=== PATIENT | male | born 2000 | race Two or more races ===

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

== ENCOUNTER 2022-02-07 22:41 | Emergency (ER) | payer OTHER, SELFPAY ==
--- NOTE | ~2022-02-07 | XR_ITS ---
EXAMINATION: XR FOOT, LEFT CLINICAL INFORMATION: r/o 2nd toe fx, PAIN COMPARISON: None TECHNIQUE: AP, lateral, and oblique views of the left foot. FINDINGS: Soft tissue swelling is evident at the second toe. No fracture or malalignment. Bone mineralization is normal. Joint spaces are well-preserved. No erosions. No soft tissue calcifications. XR/XR foot LT 2V IMPRESSION: Soft tissue swelling at the second toe. No acute osseous findings.
[2022-02-07 22:44] VITALS: BP 150/85; PULSE 79; RESP 18; TEMP 36.9; O2SAT 97; BMI 34.6
--- NOTE | 2022-02-07 23:07 | ED.LOWEXIN ---
HPI - Extremity Injury (Lower) General Chief Complaint: Extremity Injury, Lower Stated Complaint: left toe pain Time Seen by Provider: 02/07/22 23:02 Source: patient Mode of arrival: ambulatory Limitations: no limitations History of Present Illness HPI Narrative: Patient comes to the emergency room complaining of toe pain on his left foot. Patient states that he was walking towards the bathroom at home, and stump his toe again some dumbbells aware on the floor. Patient complaining of localized pain, no falls, no other injuries. Patient did not take any medication prior to arrival. Related Data Previous Rx's Medication Instructions Recorded ibuprofen 600 mg tablet 600 mg PO Q6H PRN pain #20 tabs 06/10/20 naproxen 500 mg tablet 500 mg PO BID PRN pain #20 tabs 07/14/20 ibuprofen 400 mg tablet 400 mg PO TID PRN fever or pain 02/07/22 #20 tabs Allergies Allergy/AdvReac Type Severity Reaction Status Date / Time No Known Allergies Allergy Unverified 11/11/19 17:03 Review of Systems Review of Systems: Constitutional : No Weight loss, No Fever, No Chills, No Night Sweats, No Fatigue, No Malaise ENT/Mouth : No Hearing loss, No Ear Pain, No Nasal Congestion, No Sinus Pain, No Hoarseness, No sore throat, No Rhinorrhea, No Swallowing Difficulty Eyes: No Eye Pain, No Swelling, No Redness, No Foreign Body, No Discharge, No Vision Changes Cardiovascular : No Chest Pain, No SOB, No Dyspnea on Exertion, No Orthopnea, No Edema, No Palpitations Respiratory : No Cough, No Sputum, No Wheezing, No Smoke Exposure, No Dyspnea Gastrointestinal : No Nausea, No Vomiting, No Diarrhea, No Constipation, No abdominal Pain, No Hematochezia, No Melena Genitourinary : no irregular bleeding, No Dysuria, No Urinary Frequency, No Hematuria, No Urinary Incontinence, No Urgency, No Flank Pain, No Urinary Flow Changes, No Hesitancy Musculoskeletal : Complaining of left 2nd toe pain, no joint pain, No Myalgias, No Joint Swelling Skin : No Skin Lesions, No rash Neuro : No Weakness, No Numbness, No Paresthesias, No Loss of Consciousness, No Dizziness, No Headache Psych : No Anxiety/Panic, No Depression, No SI/HI/AH/VH, No Social Issues, Heme/Lymph: No Bruising, No Bleeding,No Lymphadenopathy Endocrine : No Polyuria, No Polydipsia, No Temperature Intolerance [facility] Past Medical History Medical History No known health problems Social History Social History Advance Directives: No Advance Directives Information Provided: No Physical Exam Vital Signs: Vital Signs: Last Vital Signs Temp 98.5 F 02/07/22 22:44 Pulse 79 02/07/22 22:44 Resp 18 02/07/22 22:44 BP 150/85 H 02/07/22 22:44 Pulse Ox 97 02/07/22 22:44 O2 Del Method 02/07/22 22:44 BMI result Body Mass Index 34.6 Const: Other: Appearance: Alert. Oriented X3. No acute distress. Eyes: Pupils equal, round and reactive to light. ENT: Pharynx normal. Neck: Normal inspection. Neck supple. No lymph nodes noted. No crepitus CVS: Normal heart rate and rhythm. Pulses normal. Normal S1 and S2 Respiratory: No respiratory distress. Breath sounds normal. No Wheezing. No rales Abdomen: Soft and nontender. No rigidity. No distention. Skin: Skin warm and dry. Normal skin color. Normal skin turgor. Extremities: No lower extremity edema. No Lacerations. No Rash. Left foot looks within normal limits, no ecchymosis, no deformity, no swelling. Pain to palpation over the 2nd toe in the dorsum. Neuro: Oriented X 3. No motor deficit. No sensory deficit. Moving all extremities. No slurred speech. CN 2 through 12 grossly intact Psych: calm, cooperative, normal affect Course Course Course Narrative: Patient likely has a contusion of the left toe, fracture not suspected. X-ray pending. Patient given 1 dose of p.o. Motrin X-ray negative for fracture. Medications Administered Discontinued Medications Generic Name Dose Route Start Last Admin Trade Name Freq PRN Reason Stop Dose Admin Ibuprofen 600 mg 02/07/22 23:03 02/07/22 23:24 Ibuprofen 600 Mg Tablet PO 02/07/22 23:04 600 mg ONCE ONE Administration Medical Decision Making Differential Diagnosis Differential Diagnoses: The differential diagnosis associated with the presentation includes (Toe contusion, toe fracture) Independent Interpretation I performed an independent interpretation of an: Plain X-Ray (X-ray of the toe was reviewed by me, my interpretation: No fracture. Radiology report: FINDINGS: Soft tissue swelling is evident at the second toe. No fracture or malalignment. Bone mineralization is normal. Joint spaces are well-preserved. No erosions. No soft tissue calcifications. ) Discharge Plan Discharge Clinical Impression: Contusion of toe Patient Disposition: Home, Self-Care Instructions: Foot Contusion (ED) Additional Instructions: Please follow-up with your primary care physician tomorrow. If you have any worsening or new symptoms, please return to the emergency room or call 911 Prescriptions: New ibuprofen 400 mg tablet 400 mg PO TID PRN (Reason: fever or pain) Qty: 20 0RF No Action naproxen 500 mg tablet 500 mg PO BID PRN (Reason: pain) Qty: 20 0RF ibuprofen 600 mg tablet 600 mg PO Q6H PRN (Reason: pain) Qty: 20 0RF
[2022-02-07] MEDS: Ibuprofen 600 MG TABLET PO (23:24)
== END 2022-02-08 00:03 | disposition home or self-care (01) ==
PROVIDERS: Emergency Provider Emergency Medicine
DX: M79.675 Pain in left toe(s) (principal); Z79.899 Other long term (current) drug therapy
CPT/HCPCS: 73620; 99283